=== PATIENT | male | born 1970 | race Caucasian/White ===

== ENCOUNTER 2017-04-11 06:08 | Emergency (ER) | payer BC ==
[~2017-04-11] VITALS: Ht 175.3 cm; Wt 111.4 kg
[~2017-04-11 06:08] MED LIST: PERCOCET 5/31 TABLET PO; VYTORIN; ZOFRAN ODT4 MG PO; [UNRECOGNIZED DRUG - OTHER]
[2017-04-11] MEDS ORDERED: ANUSOL-HC21 GM PR (09:36)
[2017-04-11 10:10] VITALS: BP 154/90
== END 2017-04-11 10:21 | disposition home or self-care (01) ==
LOC: EME 06:08
DX: M79.661 Pain in right lower leg (principal); K64.9 Unspecified hemorrhoids; E78.5 Hyperlipidemia, unspecified; Z87.442 Personal history of urinary calculi
CPT/HCPCS: 93971; 99281; 99284